=== PATIENT | female | born 1955 | race Caucasian/White ===

== ENCOUNTER 2021-09-21 20:09 | Inpatient (IN) | payer MEDICARE, BC ==
[2021-09-21 20:48] VITALS: BMI 16.2
[2021-09-21] MEDS ORDERED: HYDROcodone/Acetaminophen 5/325 mg Tablet PO PRN (21:47)
[2021-09-21] MEDS ORDERED: Senokot S 8.6-50 MG TAB PO PRN (21:47)
[2021-09-21] MEDS ORDERED: Bisacodyl 5 MG TAB PO PRN (21:47)
[2021-09-21] MEDS ORDERED: Calcium Carbonate 500 MG ChewTAB PO PRN (21:47)
[2021-09-21] MEDS ORDERED: Ondansetron ODT 4 MG TAB PO PRN (21:47)
[2021-09-22 04:41] LABS: #Basophils 0.1 thou/uL (0.0-0.2); #Eosinphils 0.1 thou/uL (0.0-0.7); #Lymphocytes 2.2 thou/uL (1.20-3.40); #Monocytes 0.4 thou/uL (0.11-0.59); #Neutrophils 4.4 thou/uL (1.40-6.50); %Basophils 0.9 % (0.0-1.0); %Eosinophils 1.4 % (0.0-10.0); %Lymphocytes 30.5 % (21.0-51.0); %Monocytes 5.1 % (0.0-10.0); Hemoglobin 8.3 g/dL (12.0-16.0); Mean Corpuscular HGB CONC 33.4 g/dL (32.0-36.0); Mean Corpuscular Hemoglobin 32.8 pg (27.0-31.0); Mean Corpuscular Volume 98.2 fL (78.0-98.0); Mean Platelet Volume 7.3 fL (7.4-10.4); Platelet Count 246 thou/uL (130-400); Red Blood Cell (RBC) Count 2.52 mill/uL (4.20-5.40); White Blood Cell (WBC) Count 7.2 thou/uL (4.8-10.8)
[2021-09-22 05:04] LABS: Anion Gap 12 mmol/L (10-20); BUN (Urea Nitrogen) 13 mg/dL (9.8-20.1); Calc. Creatinine Clearance 66 mL/min (70-130); Calcium 8.8 mg/dL (7.8-10.44); Carbon Dioxide 23 mmol/L (23-31); Chloride 105 mmol/L (98-107); Estimated GFR 99; Glucose 91 mg/dL (80-115); Potassium 3.7 mmol/L (3.5-5.1); Sodium 136 mmol/L (136-145)
[2021-09-22] MEDS: Acetaminophen 325 MG TAB PO PRN ×2 (08:35→12:52)
[2021-09-22] MEDS: Sodium Chloride 0.9% (PF) 10 ML VIAL FS PRN (08:36)
[2021-09-22] MEDS ORDERED: Pantoprazole 40 MG VIAL IVP SCH (09:00)
[2021-09-22 13:08] LABS: Hemoglobin 8.3 g/dL (12.0-16.0)
[2021-09-22] MEDS ORDERED: GoLYTELY 4,000 ml Bottle PO SCH (15:00)
[2021-09-22] MEDS: Pantoprazole 40 MG VIAL IVP SCH (20:44)
[2021-09-23 05:00] LABS: #Eosinphils 0.1 thou/uL (0.0-0.7); #Lymphocytes 2.3 thou/uL (1.20-3.40); #Monocytes 0.5 thou/uL (0.11-0.59); #Neutrophils 4.7 thou/uL (1.40-6.50); %Basophils 0.5 % (0.0-1.0); %Eosinophils 1.7 % (0.0-10.0); %Lymphocytes 29.9 % (21.0-51.0); %Monocytes 5.9 % (0.0-10.0); Hemoglobin 7.9 g/dL (12.0-16.0); Mean Corpuscular HGB CONC 35.1 g/dL (32.0-36.0); Mean Corpuscular Hemoglobin 34.3 pg (27.0-31.0); Mean Corpuscular Volume 97.5 fL (78.0-98.0); Mean Platelet Volume 7.5 fL (7.4-10.4); Platelet Count 259 thou/uL (130-400); RBC Distribution Width 11.8 % (11.5-14.5); White Blood Cell (WBC) Count 7.5 thou/uL (4.8-10.8)
[2021-09-23] MEDS ORDERED: Ketamine 50 MG/ML (10ML VIAL) ONE (07:40)
[2021-09-23] MEDS ORDERED: PROPOFOL 200 MG/20 ML VIAL ONE (08:03)
[2021-09-23] MEDS: Pantoprazole 40 MG VIAL IVP SCH ×2 (09:49→20:28)
[2021-09-23] MEDS: Sodium Chloride 0.9% (PF) 10 ML VIAL FS PRN (09:49)
[2021-09-23 10:27] LABS: Reticulocyte Count 2.1 % (0.5-1.5)
[2021-09-23 10:32] LABS: Iron 65 ug/dL (50-170); Iron 66 ug/dL (50-170); Iron Binding Capacity, Total 318 mcg/dL (265-497); Iron Binding Capacity, Total 323 mcg/dL (265-497)
[2021-09-24 04:34] LABS: #Basophils 0.1 thou/uL (0.0-0.2); #Eosinphils 0.2 thou/uL (0.0-0.7); #Lymphocytes 2.6 thou/uL (1.20-3.40); #Monocytes 0.4 thou/uL (0.11-0.59); #Neutrophils 5.7 thou/uL (1.40-6.50); %Basophils 0.7 % (0.0-1.0); %Eosinophils 1.8 % (0.0-10.0); %Lymphocytes 29.1 % (21.0-51.0); %Monocytes 4.8 % (0.0-10.0); %Neutrophils 63.7 % (42.0-75.0); Hemoglobin 7.7 g/dL (12.0-16.0); Mean Corpuscular HGB CONC 33.8 g/dL (32.0-36.0); Mean Corpuscular Hemoglobin 33.5 pg (27.0-31.0); Mean Corpuscular Volume 99.1 fL (78.0-98.0); Mean Platelet Volume 7.7 fL (7.4-10.4); Platelet Count 275 thou/uL (130-400); RBC Distribution Width 12.1 % (11.5-14.5); Red Blood Cell (RBC) Count 2.31 mill/uL (4.20-5.40)
[2021-09-24] MEDS: Pantoprazole 40 MG VIAL IVP SCH (09:20)
[2021-09-24 11:36] VITALS: BP 117/60; TEMP 98.2
== END 2021-09-24 16:03 | disposition home or self-care (01) | DRG 378 ==
LOC: 2NO 20:42
PROVIDERS: ADMIT Family Medicine; ATTEND Family Medicine
PROC: 0DJ08ZZ Inspection of Upper Intestinal Tract, Via Natural or Artificial Opening Endoscopic (ICD-10-PCS; principal; 2021-09-23)
PROC: 0DBK8ZZ Excision of Ascending Colon, Via Natural or Artificial Opening Endoscopic (ICD-10-PCS; 2021-09-23)
PROC: 0DBL8ZZ Excision of Transverse Colon, Via Natural or Artificial Opening Endoscopic (ICD-10-PCS; 2021-09-23)
PROC: 0DBP8ZZ Excision of Rectum, Via Natural or Artificial Opening Endoscopic (ICD-10-PCS; 2021-09-23)
PROC: 0DBM8ZZ Excision of Descending Colon, Via Natural or Artificial Opening Endoscopic (ICD-10-PCS; 2021-09-23)
DX: K92.1 Melena (principal); B48.8 Other specified mycoses; E44.0 Moderate protein-calorie malnutrition; Z68.1 Body mass index [BMI] 19.9 or less, adult; Z20.822 Contact with and (suspected) exposure to COVID-19; F17.210 Nicotine dependence, cigarettes, uncomplicated; D64.9 Anemia, unspecified; H57.811 Brow ptosis, right; Z88.1 Allergy status to other antibiotic agents
CPT/HCPCS: 36415; 80048; 82607; 82728; 82746; 83540; 83550; 85025; 85046; 88305; C9113; J2704; U0003; U0005